=== PATIENT | female | born 1940 | race African-American/Black ===

== ENCOUNTER → 2017-05-12 | Outpatient (CLI) | payer MEDICARE, OTHER | END | disposition home or self-care (01) | LOC: KCIC DEXA 08:48 | DX: M81.0 Age-related osteoporosis without current pathological fracture (principal); E28.39 Other primary ovarian failure; Z78.0 Asymptomatic menopausal state | CPT/HCPCS: 77080 ==

== ENCOUNTER 2017-08-19 04:57 | Emergency (ER) | payer MEDICARE, OTHER ==
[2017-08-19] MEDS: predniSONE 20 MG TABLET PO (05:29)
[2017-08-19] MEDS: ACYCLOVIR 200 MG CAPSULE. PO (05:30)
[2017-08-19] MEDS: ACETAMINOPHEN/CODEINE 300/30MG TABLET. PO (05:31)
== END 2017-08-19 05:37 | disposition home or self-care (01) ==
LOC: ER 04:57
DX: B02.9 Zoster without complications (principal); I10 Essential (primary) hypertension
CPT/HCPCS: 99284; J7512